=== PATIENT | male | born 1975 | race Caucasian/White ===

== ENCOUNTER 2018-10-10 08:16 | Emergency (ER) | payer BC ==
[2018-10-10 08:24] VITALS: BP 133/89; PULSE 86; TEMP 98.1; BMI 33.0
[2018-10-10] MEDS ORDERED: DIPHTH,PERTUSS(ACELL),TET 0.5 ML DISP.SYRIN IM ONE ×2 (08:51→09:15)
--- NOTE | 2018-10-10 09:17 | PDOC ---
History of Present Illness - General Chief Complaint: Injury Stated Complaint: LACERATION TO FACE Time Seen by Provider: 10/10/18 08:41 History Source: Patient Exam Limitations: No Limitations - History of Present Illness Initial Comments: 10/10/18 09:08 43 year old man with no past medical history who presents after hitting head on his sink when standing up from the toilet and losing consciousness for < 1 min. The patient was drinking alcohol last night, came home at midnight, slept without difficulty and went to the bathroom at 0600 this AM. The patient was standing up from the toilet when he felt dizzy, as if he might pass out, and nauseous, lost consciousness then hit his head on the bathroom sink. The patient 's heard a loud bang from the bathroom and ran to his side. She found him on the ground and states that he regained consciousness after less than 1 min. The patient however has no recollection of falling or hitting his head, but does recall feeling dizzy and nauseous prior to losing consciousness. The patient is not on any anticoagulants. Last tetanus > 5 years ago. Denies chest pain, shortness of breath, abdominal pain, N/V/D/C at bedside. PCP: Nicholas Past History - Past Medical History Allergies/Adverse Reactions: Allergies Allergy/AdvReac Type Severity Reaction Status Date / Time No Known Allergies Allergy Verified 10/10/18 08:24 Home Medications: Ambulatory Orders NK [No Known Home Medication] 10/10/18 COPD: No - Suicide/Smoking/Psychosocial Hx Smoking History: Never smoked Review of Systems - Review of Systems Able to Perform ROS?: Yes Is the patient limited Faroese proficient: No Constitutional: No: Chills, Diaphoresis, Fever Respiratory: No: Cough, Orthopnea, Shortness of Breath Cardiac (ROS): No: Chest Pain, Palpitations, Syncope, Chest Tightness ABD/GI: No: Constipated, Diarrhea, Nausea, Vomiting : No: Burning, Dysuria, Hematuria, Incontinence Neurological: No: Headache, Numbness, Tingling *Physical Exam - Vital Signs Last Vital Signs Temp Pulse Resp BP Pulse Ox 98.1 F 86 18 133/89 99 10/10/18 08:19 10/10/18 08:19 10/10/18 08:19 10/10/18 08:19 10/10/18 08:19 - Physical Exam Comments: 10/10/18 09:20 GENERAL: Awake, alert, and fully oriented, in no acute distress HEAD: + R sided forehead laceration approx 3.5cm, without contamination EYES: PERRLA, EOMI, sclera anicteric, conjunctiva clear ENT: oropharynx clear without exudates. Moist mucosa NECK: Normal ROM, supple, no C spine tenderness to palpation LUNGS: No distress, speaks full sentences, clear to auscultation bilaterally HEART: Regular rate and rhythm, normal S1 and S2, no murmurs, rubs or gallops, peripheral pulses normal and equal bilaterally. ABDOMEN: Soft, nontender, normoactive bowel sounds. No guarding, no rebound. No masses EXTREMITIES : Normal inspection, Normal range of motion, no edema. No clubbing or cyanosis. NEUROLOGICAL: Cranial nerves II through XII grossly intact. Normal speech, no focal sensorimotor deficits SKIN: Warm, Dry, normal turgor, no rashes or lesions noted Moderate Sedation - Procedure Monitoring Vital Signs: Procedure Monitoring Vital Signs Temperature 98.1 F 10/10/18 08:19 Pulse Rate 86 10/10/18 08:19 Respiratory Rate 18 10/10/18 08:19 Blood Pressure 133/89 10/10/18 08:19 O2 Sat by Pulse Oximetry (%) 99 10/10/18 08:19 Procedures - Laceration/Wound Repair Face Wound Length: 2.6 to 5.0 cm Wound Explored: clean Wound's Depth, Shape: superficial Irrigated w/ Saline: Yes Anesthesia: 1% Lidocaine Amount of Anesthetic (ccs): 8 Wound Debrided: minimal Wound Repaired With: Sutures Suture Size/Type: 5:0, proline Number of Sutures: 10 Layer Closure: No Sterile Dressing Applied: Yes Splint Applied: No Sling Applied: No ED Treatment Course - LABORATORY CBC & Chemistry Diagram: 10/10/18 09:28 10/10/18 09:28 - RADIOLOGY Radiology Studies Ordered: Category Date Time Status HEAD CT WITHOUT CONTRAST [CT] Stat CT Scan 10/10/18 09:04 Ordered Medical Decision Making - Medical Decision Making 10/10/18 09:17 43 year old man with no past medical history who presents after hitting head on his sink when standing up from the toilet and losing consciousness for < 1 min after a night of drinking. ED Course: Differential including but not limited to arrythmia vs orthostatic hypotension vs s/p defecation,micturation vs seizure Head CT, ekg, boostrix, cbc, cmp Laceration repair completeed without complication. Head CT negative EKG unremarkable CBC, CMP - negative Likely patient vasovagal syncope 2/2 BM/micutiriton and likely due to dehydration Patient stable for discharge. Informed of all lab and imaging results. Given follow up instructions and strict return precautions. Patient expressed understanding and agree to plan. *DC/Admit/Observation/Transfer Diagnosis at time of Disposition: Syncope, Laceration - Discharge Dispostion Disposition: HOME Condition at time of disposition: Stable Decision to Admit order: No - Referrals Referrals: Obinna Peterson MD [Primary Care Provider] - - Patient Instructions Printed Discharge Instructions: DI for Syncope in Adults (Fainting), DI for Suture Removal Additional Instructions: You were seen in the ED for complaints of loss of consciousness and head laceration. In the ED you were evaluated with labwork and imaging. Your results were unremarkable. There does not appear to be an acute need for immediate hospitalization. Keep your laceration dry for 24 hours and avoid scented soaps or detergents. Suture removal should be down within 5-7 days. You should follow up with your Primary care physician, Dr. Peterson within 1 week. If you are unable to see your primary care within 5 days, return to the Emergency Department for suture removal. Return to the ED immediately if you experience headache, repeat loss of consciousness, seizure, chest pain or shortness of breath. - Post Discharge Activity
[2018-10-10 09:47] LABS: BASO % 0.7 % (0-2.0); EOS % 0.5 % (0-4.5); HEMATOCRIT 39.4 % (35.4-49); HEMOGLOBIN 14.1 GM/dL (11.7-16.9); MCH 29.1 pg (25.7-33.7); MCHC 35.7 g/dl (32.0-35.9); MEAN CELL VOLUME 81.6 fl (80-96); MEAN PLT VOLUME 8.5 fl (7.5-11.1); MONO % 5.8 % (3.8-10.2); PLATELET COUNT 208 K/MM3 (134-434); RBC 4.83 M/mm3 (4.00-5.60); RDW 13.7 % (11.9-15.9); WHITE BLOOD COUNT 7.5 K/mm3 (4.0-10.0)
--- NOTE | 2018-10-10 09:59 | PDOC ---
Attending Attestation - Resident Resident Name: Juliana Petersen - ED Attending Attestation I have performed the following: I have examined & evaluated the patient, The case was reviewed & discussed with the resident, I agree w/resident's findings & plan, Exceptions are as noted - HPI HPI: 10/10/18 09:57 43 M with no PMH presents to ED with head lac after syncopal episode. Pt states that he got up to use the bathroom this morning when he began to feel lightheaded and nauseous. Pt states he was seated on the toilet at the time. The next thing he remembers is waking up on the floor with his besides him. Pt states that he returned to baseline shortly. Denies incontinence, denies tongue biting. States that he feels normal now. Denies CP/SOB/ palpitations. Denies lightheadedness currently. No recent F/C. Pt does endorse drinking last night. No other drugs. - Physicial Exam PE: 10/10/18 09:58 "GENERAL: Awake, alert, and fully oriented, in no acute distress. HEAD: + 4cm stellate laceration to forehead EYES: PERRLA, EOMI, sclera anicteric, conjunctiva clear ENT: Auricles normal inspection, hearing grossly normal, nares patent, oropharynx clear without exudates. Moist mucosa NECK: Nontender, no stepoffs, Normal ROM, supple, no lymphadenopathy, JVD, or masses LUNGS: Breath sounds equal, clear to auscultation bilaterally. No wheezes, and no crackles HEART: Regular rate and rhythm, normal S1 and S2, no murmurs, rubs or gallops ABDOMEN: Soft, nontender, normoactive bowel sounds. No guarding, no rebound. No masses EXTREMITIES: Normal range of motion, no edema. No clubbing or cyanosis. No cords, erythema, or tenderness NEUROLOGICAL: Cranial nerves II through XII intact. 5/5 strength and sensation in all extremities, Normal speech, normal gait, normal cerebellar function SKIN: Warm, Dry, normal turgor, no rashes or lesions noted. - Medical Decision Making 10/10/18 09:59 43 M with head lac after syncopal episode. Likely vasovagal in context of using bathroom. Pt's EKG with OH prolongation, otherwise normal. No signs of arrhythmia. - Labs - CT head - Tdap - Lac repair 10/10/18 11:[address] head negative Lac repaired Pt is well appearing, with normal vitals. Clinically stable for DC at this time. I discussed the physical exam findings, ancillary test results and final diagnoses with the patient. I answered all of the patient's questions. The patient was satisfied with the care received and felt comfortable with the discharge plan and treatment plan. The patient agrees to follow up with the primary care physician within 24-72 hours.
[2018-10-10 10:30] LABS: ALBUMIN 3.8 g/dl (3.4-5.0); ALK PHOS 77 U/L (45-117); ANION GAP 7 MMOL/L (8-16); BILIRUBIN,TOTAL 0.5 mg/dL (0.2-1); BLOOD UREA NITROGEN 17 mg/dL (7-18); CALCIUM 9.3 mg/dL (8.5-10.1); CHLORIDE 106 mmol/L (98-107); CO2 25 mmol/L (21-32); CREATININE 1.1 mg/dL (0.55-1.3); GLUCOSE,RANDOM 156 mg/dL (74-106); POTASSIUM 4.2 mmol/L (3.5-5.1); SGOT/AST 28 U/L (15-37); SGPT/ALT 58 U/L (13-61); SODIUM 138 mmol/L (136-145); TOT PROT 7.4 g/dl (6.4-8.2)
--- NOTE | 2018-10-10 15:43 | EKG ---
Test Reason : Blood Pressure : / mmHG Vent. Rate : 076 BPM Atrial Rate : 076 BPM P-R Int : 212 ms QRS Dur : 090 ms QT Int : 360 ms P-R-T Axes : 039 028 027 degrees QTc Int : 405 ms SINUS RHYTHM WITH 1ST DEGREE A-V BLOCK OTHERWISE NORMAL ECG NO PREVIOUS ECGS AVAILABLE Confirmed by KARINA OROZCO MD ([id number]) on 10/10/2018 3:43:22 PM Referred By: Confirmed By:KARINA OROZCO MD
== END 2018-10-10 11:09 | disposition home or self-care (01) ==
LOC: JER 08:16
PROC: 0HQ1XZZ Repair Face Skin, External Approach (ICD-10-PCS; principal; 2018-10-10)
PROC: 3E0234Z Introduction of Serum, Toxoid and Vaccine into Muscle, Percutaneous Approach (ICD-10-PCS; 2018-10-10)
DX: R55 Syncope and collapse (principal); S01.81XA Laceration without foreign body of other part of head, initial encounter; W22.03XA Walked into furniture, initial encounter; Y93.89 Activity, other specified; Y92.002 Bathroom of unspecified non-institutional (private) residence as the place of occurrence of the external cause
CPT/HCPCS: 36415; 70450-TC; 80053; 84484; 85025; 90715; 93005; 93010; 99283-25

== ENCOUNTER 2019-10-03 05:20 | Emergency (ER) | payer BC, OTHER ==
[2019-10-03 05:29] VITALS: BMI 35.1
[2019-10-03 07:24] LABS: BASO % 0.7 % (0-2.0); EOS % 1.3 % (0-4.5); HEMATOCRIT 39.2 % (35.4-49); HEMOGLOBIN 13.3 GM/dL (11.7-16.9); LYMPH % 17.7 % (8-40); MCH 27.7 pg (25.7-33.7); MCHC 33.8 g/dl (32.0-35.9); MEAN CELL VOLUME 81.9 fl (80-96); MEAN PLT VOLUME 8.3 fl (7.5-11.1); MONO % 8.6 % (3.8-10.2); NEUT % 71.7 % (42.8-82.8); PLATELET COUNT 157 K/MM3 (134-434); RBC 4.79 M/mm3 (4.00-5.60); RDW 13.5 % (11.9-15.9); WHITE BLOOD COUNT 5.8 K/mm3 (4.0-10.0)
[2019-10-03 07:25] LABS: EPI CELLS 0.5 /HPF (0-5/HPF); HYALINE CASTS 0 /lpf (0-8); PH,URINE 5.5 (5.0-8.0); URINE APPEARANCE CLEAR; URINE BACTERIA 12.4 /hpf (NEGATIVE); URINE BILIRUBIN NEGATIVE (NEGATIVE); URINE COLOR YELLOW; URINE GLUCOSE (UA) NEGATIVE (NEGATIVE); URINE KETONE NEGATIVE (NEGATIVE); URINE LEUK ESTERASE NEGATIVE (NEGATIVE); URINE NITRITE NEGATIVE (NEGATIVE); URINE PROTEIN NEGATIVE (NEGATIVE); URINE RBC 0 /hpf (0-4); URINE UROBILINOGEN 0.2 mg/dL (0.2-1.0); URINE WBC 0 /hpf (0-5)
--- NOTE | 2019-10-03 07:39 | PDOC ---
History of Present Illness - General Chief Complaint: Pain, Acute Stated Complaint: PAIN LOWER LEFT SIDE BACK Time Seen by Provider: 10/03/19 07:26 - History of Present Illness Initial Comments: 10/03/19 07:15 44 yo M PMH kidney stone 4-5 years ago (passed without intervention), presenting with L flank pain. Patient reports that he woke up around 0400 to urinate, and developed 9/10 sharp L flank pain afterwards. Reportedly felt similar to prior episode of kidney stone, so he came to the ER. Reports nausea without vomiting which has since resolved, with pain now down to 6/10. Denies dysuria, hematuria, penile discharge, CP, SOB, abd pain, SALGU[place], constipation /diarrhea, fevers/chills. Past History - Past Medical History Allergies/Adverse Reactions: Allergies Allergy/AdvReac Type Severity Reaction Status Date / Time No Known Allergies Allergy Verified 10/03/19 05:26 Home Medications: Ambulatory Orders NK [No Known Home Medication] 10/10/18 COPD: No - Immunization History Immunization Up to Date: Yes - Psycho Social/Smoking Cessation Hx Smoking History: Never smoked Have you smoked in the past 12 months: No Information on smoking cessation initiated: No Hx Alcohol Use: No Drug/Substance Use Hx: No Review of Systems - Review of Systems Comments:: 10/03/19 07:15 GENERAL/CONSTITUTIONAL: No fever or chills. No weakness. HEAD, EYES, EARS, NOSE AND THROAT: No change in vision. No ear pain or discharge. No sore throat. CARDIOVASCULAR: No chest pain or shortness of breath. RESPIRATORY: No cough, wheezing, or hemoptysis. GASTROINTESTINAL: Nausea without vomiting. No diarrhea or constipation. GENITOURINARY: No dysuria, frequency, or change in urination. L flank pain. MUSCULOSKELETAL: No joint or muscle swelling or pain. No neck or back pain. SKIN: No rash NEUROLOGIC: No headache, vertigo, loss of consciousness, or change in strength/ sensation. ENDOCRINE: No increased thirst. No abnormal weight change. HEMATOLOGIC/LYMPHATIC: No anemia, easy bleeding, or history of blood clots. ALLERGIC/IMMUNOLOGIC: No hives or skin allergy *Physical Exam - Vital Signs Last Vital Signs Temp Pulse Resp BP Pulse Ox 98.3 F 75 20 142/94 98 10/03/19 05:23 10/03/19 05:23 10/03/19 05:23 10/03/19 05:23 10/03/19 05:23 ED Treatment Course - LABORATORY CBC & Chemistry Diagram: 10/03/19 07:09 10/03/19 07:09 - ADDITIONAL ORDERS Additional order review: Laboratory Results 10/03/19 07:09 Urine Color Yellow Urine Appearance Clear Urine pH 5.5 Ur Specific [place] 1.006 L Urine Protein Negative Urine Glucose (UA) Negative Urine Ketones Negative Urine Blood 2+ H Urine Nitrite Negative Urine Bilirubin Negative Urine Urobilinogen 0.2 Ur Leukocyte Esterase Negative Urine WBC (Auto) 0 Urine RBC (Auto) 0 Urine Casts (Auto) 0 U Epithel Cells (Auto) 0.5 Urine Bacteria (Auto) 12.4 10/03/19 07:09 RBC 4.79 MCV 81.9 MCHC 33.8 RDW 13.5 MPV 8.3 Neutrophils % 71.7 Lymphocytes % 17.7 D Monocytes % 8.6 Eosinophils % 1.3 D Basophils % 0.7 - RADIOLOGY Radiology Studies Ordered: Category Date Time Status ABDOMEN & PELVIS CT W/O CONTR [CT] Stat CT Scan 10/03/19 07:35 Ordered Medical Decision Making - Medical Decision Making 10/03/19 07:15 Concern for kidney stone vs abdominal pathology. - CBC, CMP - EKG - CT abd/pelvis - UA shows 2+ blood, but without RBCs, consistent with possible myoglobinuria. However, CK wnl. EKG normal sinus with 1st degree AV block, 74 bpm, no ischemic changes 10/03/19 09:19 CT abd/pelvis: hepatomegaly with fatty infiltration, splenomegaly with low- attenuation lesion, superiorly measuring 2.1 cm that may represent a hemangioma. Recommend nonemergent MRI w/ constrast of the abdomen. Punctate nonobstructing left renal stone without evidence of hydroureteroneuphrosis or obstructing stone. Will plan to dc the patient for further outpatient workup. Discharge - Discharge Information Problems reviewed: Yes Clinical Impression/Diagnosis: Hepatomegaly, Splenomegaly, Flank pain Condition: Improved Disposition: HOME - Follow up/Referral - Patient Discharge Instructions Additional Instructions: You were seen with L flank pain which felt similar to pain with a prior kidney stone. This pain diminished without medication. A CT scan of your abdomen and pelvis was performed, which showed a finding on your spleen. It is very important that you get this followed up on an outpatient basis with an MRI. Take ibuprofen as needed for pain. Follow up with your primary care doctor within 1 week. Return to the ED if you develop worsening symptoms. - Post Discharge Activity
[2019-10-03 07:46] LABS: ALBUMIN 3.6 g/dl (3.4-5.0); ALK PHOS 73 U/L (45-117); ANION GAP 7 MMOL/L (8-16); BILIRUBIN,TOTAL 0.5 mg/dL (0.2-1); BLOOD UREA NITROGEN 21.1 mg/dL (7-18); CALCIUM 8.8 mg/dL (8.5-10.1); CHLORIDE 104 mmol/L (98-107); CO2 26 mmol/L (21-32); CREATININE 1.1 mg/dL (0.55-1.3); GLUCOSE,RANDOM 154 mg/dL (74-106); POTASSIUM 4.2 mmol/L (3.5-5.1); SGOT/AST 24 U/L (15-37); SGPT/ALT 57 U/L (13-61); SODIUM 137 mmol/L (136-145); TOT PROT 6.6 g/dl (6.4-8.2)
[2019-10-03] MEDS ORDERED: IBUPROFEN 400 MG TABLET (FP) PO ONE ×2 (08:09→08:23)
--- NOTE | 2019-10-03 09:17 | PDOC ---
Attending Attestation - Resident Resident Name: Mac Khanna - ED Attending Attestation I have performed the following: I have examined & evaluated the patient, The case was reviewed & discussed with the resident, I agree w/resident's findings & plan, Exceptions are as noted - HPI HPI: 10/03/19 09:14 44 M with h/o kidney stone presents to ED with L side abdominal pain starting this morning. Pt states that the pain was constant, non-radiating. Not associated with vomiting or diarrhea. No dysuria. No F/C. Pt states that it felt like his previous kidney stone. At time of my evaluation, pt states that the pain resolved completely. Denies scrotal pain. Denies flank pain. - Physicial Exam PE: 10/03/19 09:15 GENERAL: Awake, alert, and fully oriented, in no acute distress. HEAD: No signs of trauma EYES: PERRLA, EOMI, sclera anicteric, conjunctiva clear ENT: Auricles normal inspection, hearing grossly normal, nares patent, oropharynx clear without exudates. Moist mucosa NECK: Nontender, no stepoffs, Normal ROM, supple, no lymphadenopathy, JVD, or masses LUNGS: Breath sounds equal, clear to auscultation bilaterally. No wheezes, and no crackles HEART: Regular rate and rhythm, normal S1 and S2, no murmurs, rubs or gallops ABDOMEN: Soft, nontender, normoactive bowel sounds. No guarding, no rebound. No masses, no CVAT EXTREMITIES: Normal range of motion, no edema. No clubbing or cyanosis. No cords, erythema, or tenderness NEUROLOGICAL: Cranial nerves II through XII intact. 5/5 strength and sensation in all extremities, Normal speech, normal gait, normal cerebellar function SKIN: Warm, Dry, normal turgor, no rashes or lesions noted. : Normal scrotum, normal cremasteric reflex - Medical Decision Making 10/03/19 09:16 44 M with L side abdominal pain, now resolved. Benign abdominal exam. No evidence of testicular torsion. Labs and CT unremarkable Pt is well appearing, with normal vitals. Clinically stable for DC at this time. I discussed the physical exam findings, ancillary test results and final diagnoses with the patient. I answered all of the patient's questions. The patient was satisfied with the care received and felt comfortable with the discharge plan and treatment plan. The patient agrees to follow up with the primary care physician within 24-72 hours.
[2019-10-03 09:27] VITALS: BP 140/73; PULSE 89; TEMP 98
--- NOTE | 2019-10-03 10:11 | EKG ---
Test Reason : Blood Pressure : / mmHG Vent. Rate : 074 BPM Atrial Rate : 074 BPM P-R Int : 222 ms QRS Dur : 090 ms QT Int : 364 ms P-R-T Axes : 027 016 015 degrees QTc Int : 404 ms SINUS RHYTHM WITH 1ST DEGREE A-V BLOCK OTHERWISE NORMAL ECG WHEN COMPARED WITH ECG OF 10-OCT-2018 09:18, NO SIGNIFICANT CHANGE WAS FOUND Confirmed by GILES RIVERA, ROOPA ([id number]) on 10/03/2019 10:11:14 AM Referred By: Confirmed By:ROOPA SKAGGS MD
== END 2019-10-03 09:35 | disposition home or self-care (01) ==
LOC: JER 05:20
DX: R16.2 Hepatomegaly with splenomegaly, not elsewhere classified (principal); R10.32 Left lower quadrant pain
CPT/HCPCS: 36415; 74176-TC; 80053; 81003; 82550; 84484; 85025; 87086; 93005; 93010; 99283-25